=== PATIENT | male | born 1960 | race Caucasian/White ===

== ENCOUNTER 2017-11-01 06:00 | Inpatient (IN) | payer OTHER ==
[~2017-11-01] VITALS: Ht 188 cm; Wt 114.7 kg
[~2017-11-01 06:00] MED LIST: GABA100C PO
[2017-11-01] MEDS ORDERED: LACTATED RINGERS 1,000 ML IV SCH (06:38)
[2017-11-01] MEDS ORDERED: GENTAMICIN 80 MG/2 ML ONE ×2 (06:48→08:07)
[2017-11-01] MEDS ORDERED: BUPIVACAINE/PF 0.5% ONE (06:48)
[2017-11-01] MEDS ORDERED: VANCOMYCIN 1,000 MG ONE (06:48)
[2017-11-01] MEDS ORDERED: THROMBIN 5,000 UNIT VIAL TP ONE (06:48)
[2017-11-01] MEDS ORDERED: LIDOCAINE 1%-EPI 1:100K, 30ML ONE (06:49)
[2017-11-01] MEDS ORDERED: BACITRACIN 50,000 UNIT ONE (06:49)
[2017-11-01] MEDS ORDERED: EPINEPHRINE 1 MG/ML, 1ML ONE (06:49)
[2017-11-01] MEDS ORDERED: LIDOCAINE-MPF 1%, 2ML INFIL ONE (07:00)
[2017-11-01] MEDS ORDERED: HEPARIN 1,000 UNITS/ML, 30ML ONE (07:05)
[2017-11-01] MEDS ORDERED: MIDAZOLAM 1 MG/ML, 2ML ONE (07:11)
[2017-11-01] MEDS ORDERED: FENTANYL PF 250 MCG/5ML ONE (07:11)
[2017-11-01] MEDS ORDERED: PROPOFOL 10 MG/ML, 20ML ONE ×13 (07:11→08:47)
[2017-11-01] MEDS ORDERED: SUCCINYLCHOLINE 20 MG/ML, 10ML ONE (07:18)
[2017-11-01] MEDS ORDERED: CEFAZOLIN 1,000 MG ONE ×5 (07:22→11:44)
[2017-11-01] MEDS ORDERED: PHENYLEPHRINE 10 MG/ML ONE (07:24)
[2017-11-01] MEDS ORDERED: EPHEDRINE 50 MG/ML, 1ML ONE (07:24)
[2017-11-01] MEDS ORDERED: ROCURONIUM 10MG/ML,5ML ONE ×2 (07:29)
[2017-11-01] MEDS ORDERED: OxyconTIN ER 10 MG TAB.ER PO ONE (07:30)
[2017-11-01] MEDS ORDERED: GABAPENTIN 300 MG CAPSULE PO ONE (07:30)
[2017-11-01] MEDS ORDERED: ACETAMINOPHEN 500 MG TABLET PO ONE (07:30)
[2017-11-01] MEDS ORDERED: KETAMINE 10 MG/ML, 20ML ONE (07:31)
[2017-11-01] MEDS ORDERED: morphine SULFATE/PF 1 MG/ML, 10ML ONE (07:32)
[2017-11-01] MEDS ORDERED: FENTANYL PF 100 MCG/2ML ONE (07:33)
[2017-11-01] MEDS ORDERED: DEXAMETHASONE 4 MG/ML, 1ML ONE ×3 (08:07)
[2017-11-01] MEDS ORDERED: GLYCOPYRROLATE 0.2MG/1ML, 5ML ONE (08:07)
[2017-11-01] MEDS ORDERED: PROMETHAZINE 25 MG/ML, 1ML IV PRN (13:00)
[2017-11-01] MEDS ORDERED: OXYcodone 5 MG/5 ML ORAL.SOL UDC PO PRN (13:00)
[2017-11-01] MEDS ORDERED: FENTANYL PF 100 MCG/2ML IV PRN (13:00)
[2017-11-01] MEDS ORDERED: HYDROmorphone 1 MG/ML, 1ML IV PRN (13:00)
[2017-11-01] MEDS ORDERED: ONDANSETRON 2MG/ML, 2ML ONE (13:30)
[2017-11-01] MEDS ORDERED: ONDANSETRON 2MG/ML, 2ML IV PRN (16:00)
[2017-11-01] MEDS ORDERED: LABETALOL 5MG/ML, 20ML IV PRN (16:00)
[2017-11-01] MEDS ORDERED: HYDROcodone/APAP 5/325 TABLET PO PRN (16:00)
[2017-11-01] MEDS ORDERED: DIAZEPAM 5 MG/ML, 2ML IV PRN (16:00)
[2017-11-01] MEDS ORDERED: DIAZEPAM 5 MG TABLET PO PRN (16:00)
[2017-11-01] MEDS ORDERED: PROMETHAZINE 25 MG/ML, 1ML IM PRN (16:00)
[2017-11-01] MEDS: D5%-0.9% NACL+KCL 20MEQ 1,000 ML IV SCH (16:56)
[2017-11-01] MEDS: CEFAZOLIN PMX 1GM/50ML 50 ML IVPB SCH (16:56)
[2017-11-01] MEDS ORDERED: CEFAZOLIN PMX 1GM/50ML 50 ML IVPB SCH (19:00)
[2017-11-01 19:45] VITALS: BP 126/49
[2017-11-02] MEDS: D5%-0.9% NACL+KCL 20MEQ 1,000 ML IV SCH ×4 (00:33→21:20)
[2017-11-02] MEDS: CEFAZOLIN PMX 1GM/50ML 50 ML IVPB SCH ×3 (00:33→16:21)
[2017-11-02 00:36] VITALS: BP 112/69
[2017-11-02 04:11] VITALS: BP 102/58
[2017-11-02] MEDS: OXYcodone/APAP 5/325MG TABLET PO PRN ×5 (05:43→20:14)
[2017-11-02] MEDS: SENNA/DOCUSATE TABLET PO SCH (08:01)
[2017-11-02 08:30] VITALS: BP 112/66
[2017-11-02 13:10] VITALS: BP 130/67
[2017-11-02 19:20] VITALS: BP 115/50
[2017-11-02] MEDS: GABAPENTIN 300 MG CAPSULE PO SCH (21:35)
[2017-11-03] MEDS: OXYcodone/APAP 5/325MG TABLET PO PRN ×3 (00:28→11:30)
[2017-11-03] MEDS: CEFAZOLIN PMX 1GM/50ML 50 ML IVPB SCH ×2 (00:29→08:19)
[2017-11-03 02:00] VITALS: BP 103/65
[2017-11-03] MEDS: D5%-0.9% NACL+KCL 20MEQ 1,000 ML IV SCH (02:47)
[2017-11-03 07:13] VITALS: BP 119/70
[2017-11-03] MEDS: GABAPENTIN 300 MG CAPSULE PO SCH (08:19)
[2017-11-03] MEDS: SENNA/DOCUSATE TABLET PO SCH (08:19)
[2017-11-03] MEDS ORDERED: OXYC5CAP2 PO (12:36)
== END 2017-11-03 13:00 | disposition home or self-care (01) | DRG 460 ==
LOC: ORIP 06:00 → 4NOR 15:29 → DCLOUNGE 11-03 12:34
PROVIDERS: ADMIT Orthopaedic Surgery Orthopaedic Surgery of the Spine; ATTEND Orthopaedic Surgery Orthopaedic Surgery of the Spine
PROC: 01NB0ZZ Release Lumbar Nerve, Open Approach (ICD-10-PCS; 2017-11-01)
PROC: 0SB40ZZ Excision of Lumbosacral Disc, Open Approach (ICD-10-PCS; 2017-11-01)
PROC: 0QB20ZZ Excision of Right Pelvic Bone, Open Approach (ICD-10-PCS; 2017-11-01)
PROC: 4A11X4G Monitoring of Peripheral Nervous Electrical Activity, Intraoperative, External Approach (ICD-10-PCS; 2017-11-01)
PROC: 0SG3071 Fusion of Lumbosacral Joint with Autologous Tissue Substitute, Posterior Approach, Posterior Column, Open Approach (ICD-10-PCS; principal; 2017-11-01 07:30)
DX: M48.061 Spinal stenosis, lumbar region without neurogenic claudication (principal); M51.17 Intervertebral disc disorders with radiculopathy, lumbosacral region; M43.17 Spondylolisthesis, lumbosacral region; I10 Essential (primary) hypertension; Z90.49 Acquired absence of other specified parts of digestive tract; Z87.891 Personal history of nicotine dependence; Z82.49 Family history of ischemic heart disease and other diseases of the circulatory system; Z83.3 Family history of diabetes mellitus; Z80.42 Family history of malignant neoplasm of prostate
CPT/HCPCS: 36415; 72100; J3490; 86850; 86900; 86923; C1713; C1776; J0171; J0690; J1100; J1644; J2250; J2270; J2274; J2405; J2704; J3010; J3370; C1751; C1762; J0330; J1580; J2370; J3480; J7120